=== PATIENT | female | born 1970 | race Caucasian/White ===

== ENCOUNTER 2025-02-22 14:52 | Outpatient (AMB) | payer OTHER, SELFPAY ==
--- NOTE | 2025-02-22 15:01 | A.OFFPC_ITS ---
Vital Signs 02/22/25 15:09 Height 4 ft 11 in Weight 141 lb 3 oz BMI 28.5 BP 140/86 H Blood Pressure Location Rt brachial Position Sitting Respiration 15 Pulse 119 H Pulse Source Pulse Oximeter Temp 98.1 F Temp Source Temporal Artery Scan Pulse Oximetry (%) 95 Oxygen Delivery Method Room Air Intake Visit Reasons: CPE Intake Note: Concha presents in the office today to establish care. Teacher Hearing Impaired Required: No Post menopausal: Yes Patient : No Allergies No Known Allergies Allergy (Verified 02/22/25 15:04) Medication List - Last Reconciled 02/22/25 by To Jolly MD amlodipine 10 mg PO DAILY meclizine 50 mg PO Q12H PRN metoprolol succinate ER 25 mg PO DAILY Tobacco use date assessed: 02/22/25 Dental Screening Dental Screen Date: 02/22/25 Did you have a dental visit in the last 12 months?: No Did you have a dental problem in the last 6 months where you did not have access to dental care?: No Was dental information given to patient?: Patient has dentist HPI CPE HPI Details New Patient? ?? Prior PCP:? Dr Saba Last office visit/CPE:? [facility] for a medical leave. CPE 10 mos ago Acute issue(s):? Anxiety/depression Was w/ [facility] in [place]. Had been on Meds and she discontinued them. EtOH and stopped in March. Tried Lorazepam, Venlafaxine Vertigo/Menierres, Would like referral to Neurology at [facility] Vision Change - Has Eye Dr. Rosales sided sxs including Leg cramping, Paresthesias, ?? PMHx:? Hypertension, anxiety, depression, Meniers Dr [facility] ENT. SurgHx:?R Carpal Tunnel, Breast Bx - Neg FHx:?Adopted. Unknown SocHx: Smokes 1/4ppd, EtOH quit Mar 2024, No THC, No other drugs PFSH Medical History (Updated 02/22/25 @ 16:28 by To Jolly MD) Carpal tunnel syndrome COPD (chronic obstructive pulmonary disease) Occasional tremors Imbalance Back disorder Arthritis Headache Depression Tinnitus Anxiety disorder Seizure disorder Meniere syndrome Surgical History (Updated 02/22/25 @ 15:18 by Aggie Waggoner CMA) Hx of breast biopsy Social History Housing: House Alcohol intake: former Patient Tobacco Use Status: Current everyday Tobacco user Cigarette Packs Per Day: 1 Cigarettes Per Day: 6 Years Smoked: 30 e-Cigarette/Vaping Use: Never Used Second Hand Smoke Exposure: Yes service: No Current occupational status: employed Current occupation: [employer] Current occupational exposures/hazards: No Cognitive needs: No Hearing needs: No Vision needs: No Questionnaire PHQ-9 Over the last 2 weeks, how often have you been bothered by any of the following problems? 1. Little interest or pleasure in doing things: nearly every day 2. Feeling down, depressed, or hopeless: nearly every day 3. Trouble falling or staying asleep, or sleeping too much: nearly every day 4. Feeling tired or having little energy: nearly every day 5. Poor appetite or overeating: more than half the days 6. Feeling bad about yourself - or that you are a failure or have let yourself or your family down: several days 7. Trouble concentrating on things, such as reading the newspaper or watching television: nearly every day 8. Moving or speaking so slowly that other people could have noticed. Or the opposite - being so fidgety or restless that you have been moving around a lot more than usual: nearly every day 9. Thoughts that you would be better off or of hurting yourself in some way: not at all Total score: 21 Depression Screening Interpretation: Positive Depression Screening Follow-up: Community Mental Health Worker F/U Depression Screening Done: Yes 18564 - PHQ-9 Billing: Yes Source: Developed by Drs. Alverto Cardenas, Damari Daniels, Nadeem Ratliff and colleagues, with an educational yeny from [employer]. Thrive Questionnaire Date Thrive assessed: 02/22/25 I am a: Patient What is your living situation today?: I have a steady place to live Within the past 12 months, did the food you bought not last and you didn't have the money to get more?: Sometimes True Within the past 12 months, did you worry whether your food would run out before you got money to buy more?: Sometimes True Do you have trouble paying for medicines?: No Do you have trouble getting transportation to medical appointments?: Yes Do you have trouble paying your heating and electricity bill?: No Do you have trouble taking care of your child, family member or friend?: No Do you have trouble with day-to-day activities such as bathing, preparing meals, shopping, managing finances, etc.?: Yes Are you currently unemployed and looking for a job?: No Are you interested in more education?: No Please select the resources that you would like help with: Food, Transportation and Utilities Currently or been in a relationship where the following occur: No concerns re ported THRIVE Score: 3 AUDIT C Alcohol Use Questionnaire (AUDIT-C) 1. How often do you have a drink containing alcohol?: Never 3. How often do you have six or more drinks on one occasion?: Never Total Score: 0 KATHY-7 AMB Questionnaire KATHY-7 Date KATHY - 7 assessed: 02/22/25 Feeling nervous, anxious, or on edge: 3 = Nearly every day Not being able to stop or control worryin = Nearly every day Worrying too much about different things: 3 = Nearly every day Trouble relaxin = Nearly every day Being so restless that it is hard to sit still: 2 = More than half the days Becoming easily annoyed or irritable: 2 = More than half the days Feeling afraid as if something awful might happen: 2 = More than half the days Total KATHY-7 score (0-4 normal; 5-9 mild; 10-14 moderate; 15-21 severe): 18 Source: Developed by Drs. Alverto Cardenas, Damari Daniels, Nadeem Ratliff and colleagues, with an educational yeny from [employer]. KATHY-7 Assessment Billing KATHY-7 Assessment Tool: KATHY-7 Assessment 97032 Review of Systems Const Denies chills, Denies fatigue, Denies fever(s), Denies headache(s) and Denies weakness ENT Denies dizziness and Denies headache(s) Card Denies chest pain, Denies lightheadedness, Denies dyspnea and Denies other (Palpitations) Resp Denies cough, Denies dyspnea, Denies wheezing and Denies other ( shortness of breath) Musc Denies numbness and Denies tingling Neuro Denies dizziness, Denies headache(s), Denies numbness, Denies tingling, Denies paresthesias and Denies weakness Psych Reports anxiety and Reports depression Endo Denies fatigue Aller/Immun Denies wheezing Physical exam (Primary Care) Vital Signs: Last Vital Signs Temp 98.1 F 02/22/25 15:09 Pulse 119 H 02/22/25 15:09 Resp 15 02/22/25 15:09 BP 140/86 H 02/22/25 15:09 Pulse Ox 95 02/22/25 15:09 Oxygen Delivery Method Room Air 02/22/25 15:09 BMI result Body Mass Index 28.5 Tobacco/Smoking Status: Tobacco use Status Tobacco use date assessed 02/22/25 02/22/25 15:07 Patient Tobacco Use Status Current everyday Tobacco 02/22/25 15:08 e-Cigarette/Vaping Use Never Used 02/22/25 15:08 PHQ-9: PHQ-9 Score PHQ-9: Total score 21 02/22/25 15:07 Depression Screening Interpretation: Positive Depression Screening Follow-up: Community Mental Health Worker F/U Thrive Assessment: Date of Thrive Assessment Date Thrive assessed 02/22/25 02/22/25 15:03 Currently or been in a relationship where the following occur: No concerns reported Const General: no acute distress and well developed Nutritional Appearance: well nourished Orientation/consciousness: patient oriented x3 HENMT Head: Yes normocephalic and Yes atraumatic Eyes General: appearance normal, both eyes and all related structures Pupils: Equal, round and reactive pupils present EOM: EOMs intact bilaterally Resp Effort & Inspection: normal respiratory effort Auscultation: clear to auscultation bilaterally Cardio Rate: tachycardic Rhythm: regular rhythm Heart sounds: S1 normal heart sound present, S2 normal heart sound present, no gallops, no murmurs and no rubs Neuro General: patient oriented x3 and gait normal Cranial nerves: Yes Equal, round and reactive pupils present Psych Affect: normal affect Coding Level of Care Code New Pt Level 4 (06730) Diagnoses Hypertension I10 Depression with anxiety F41.8 History of alcohol use Z87.898 Meniere syndrome H81.09 Unilateral hearing loss H91.90 Smoker F17.200 Vision changes H53.9 Vertigo R42 Tachycardia R00.0 Laboratory exam ordered as part of routine general medical examination Z00.00 Additional Codes KATHY-7 Assessment Billing - KATHY-7 Assessment Tool: KATHY-7 Assessment 69517 ([id number]) PHQ-9 - 30794 - PHQ-9 Billing: Yes ([id number]) Assessment & Plan Assessment & Plan (1) Hypertension: Code(s): I10 - Essential (primary) hypertension Category: Medical Plan: Blood pressure is too high Nevertheless she is also tachycardic Will increase metoprolol Hydrate well Continue amlodipine as prescribed (2) Depression with anxiety: Code(s): F41.8 - Other specified anxiety disorders Category: Medical Plan: PHQ-9 and kathy 7 are high Patient notes longstanding history of anxiety and depression. She has had a psychiatrist and psychologist/therapist past Patient does not seem interested in using a medication again Agrees to try therapy Will refer to nurse navigator for connection with a therapist again (3) History of alcohol use: Code(s): Z87.898 - Personal history of other specified conditions Category: Medical Plan: Patient notes that she has not had anything to drink since March 2024 Encouraged ongoing abstinence (4) Meniere syndrome: Code(s): H81.09 - Meniere's disease, unspecified ear Category: Medical Plan: Left ear hearing loss in vertigo. Has been diagnosed with Meniere's disease by ENT and followed by her addiction medicine physician Patient says she has been prescribed amplification but has not gotten this yet She has meclizine for vertigo and nausea but still has significant nausea and vomiting She can try Zofran for severe nausea and meclizine more mild nausea. Hydrate well (5) Unilateral hearing loss: Code(s): H91.90 - Unspecified hearing loss, unspecified ear Category: Medical Plan: As above, left-sided hearing loss which has been associated with her Meniere's disease Follow-up with ENT (6) Smoker: Code(s): F17.200 - Nicotine dependence, unspecified, uncomplicated Category: Social Hx Plan: Patient is working on weaning down She can try nicotine gum/lozenges Greater than 20 pack year history of smoking Will refer her for lung cancer screening (7) Vision changes: Code(s): H53.9 - Unspecified visual disturbance Category: Medical Plan: Left eye vision changes Has animal hospital office supervisor and should follow-up with Ophthalmology as recommended (8) Vertigo: Code(s): R42 - Dizziness and giddiness Category: Medical Plan: As above (9) Tachycardia: Code(s): R00.0 - Tachycardia, unspecified Category: Medical Plan: Tachycardia which seems likely secondary to vomiting and some dehydration Will work on treating underlying vomiting Continue good hydration and can try 1 electrolyte drink each morning Will give her a script for Lylafran as above to try to decrease vomiting and help her keep down fluids (10) Laboratory exam ordered as part of routine general medical examination: Code(s): Z00.00 - Encounter for general adult medical examination without abnormal findings Category: Medical Plan: Check labs Plan Patient needs extension of disability paperwork - will schedule soon appointment to fill of paperwork If patient is still tachycardic, will check EKG Patient has symptoms of vertigo, paresthesias on left side, left-sided cramps, vision change at left eye. Has had MRI which I will review when available. Likely have already ruled out MS - patient would like new referral to another neurologist. Referred. Orders: Orders Comprehensive [place]. Panel Fast Today Z00.00 - Encounter for general adult medical examination without abnormal findings Complete Blood Count Auto Diff Today Z00.00 - Encounter for general adult medical examination without abnormal findings Microalbumin, Random (w Creat) Today I10 - Essential (primary) hypertension UA CC w/rflx Micro + Cult Today Z00.00 - Encounter for general adult medical examination without abnormal findings Lipid Panel Today Z00.00 - Encounter for general adult medical examination without abnormal findings TSH reflex Free T4 Today Z00.00 - Encounter for general adult medical examination without abnormal findings Vitamin D 25-OH Total Today E55.9 - Vitamin D deficiency, unspecified Referrals Nurse Navigator Referral F41.8 - Other specified anxiety disorders Neurology Referral H53.9 - Unspecified visual disturbance, H91.90 - Unspecified hearing loss, unspecified ear, R20.2 - Paresthesia of skin, R42 - Dizziness and giddiness Lung Cancer Screening Referral F17.200 - Nicotine dependence, unspecified, uncomplicated Medications: New nicotine (polacrilex) (Nicorette) 2 mg buccal Q6H PRN 81 ea 2RF nicotine cravings 30 days F17.200 - Nicotine dependence, unspecified, uncomplicated ondansetron 4 mg PO DAILY PRN 12 tabs 1RF nausea and vomiting 30 days Changed From metoprolol succinate ER 25 mg PO DAILY F41.8 - Other specified anxiety disorders To metoprolol succinate ER 25 mg PO DAILY 90 days 90 tabs 3RF F41.8 - Other specified anxiety disorders From metoprolol succinate ER 25 mg PO DAILY 90 days 90 tabs 3RF To metoprolol succinate ER 25 mg PO Q12H 180 tabs 3RF 90 days
[2025-02-22 15:09] VITALS: BP 140/86; PULSE 119; RESP 15; TEMP 36.7; O2SAT 95; BMI 28.5
== END 2025-02-22 16:14 | disposition home or self-care (01) ==
LOC: HO.HMCFM 14:53
PROVIDERS: PCP Family Medicine; Visit Provider Family Medicine
DX: I10 Essential (primary) hypertension (principal); F41.8 Other specified anxiety disorders; Z87.898 Personal history of other specified conditions; H81.09 Meniere's disease, unspecified ear; H91.90 Unspecified hearing loss, unspecified ear; F17.200 Nicotine dependence, unspecified, uncomplicated; H53.9 Unspecified visual disturbance; R42 Dizziness and giddiness; R00.0 Tachycardia, unspecified; Z00.00 Encounter for general adult medical examination without abnormal findings

== ENCOUNTER → 2025-02-22 14:52 | Outpatient (BNVA) | payer OTHER, SELFPAY | PROVIDERS: PCP Family Medicine; Visit Provider Family Medicine | DX: Z00.00 Encounter for general adult medical examination without abnormal findings (principal); I10 Essential (primary) hypertension; F41.8 Other specified anxiety disorders; H81.09 Meniere's disease, unspecified ear; H91.90 Unspecified hearing loss, unspecified ear; H53.9 Unspecified visual disturbance; R42 Dizziness and giddiness; R00.0 Tachycardia, unspecified; F17.210 Nicotine dependence, cigarettes, uncomplicated; Z87.898 Personal history of other specified conditions | CPT/HCPCS: 96127; 99202 ==